=== PATIENT | female | born 1990 | race Caucasian/White ===

== ENCOUNTER 2020-09-24 08:04 | Emergency (ER) | payer OTHER ==
[~2020-09-24] VITALS: Ht 160 cm; Wt 74.0 kg
[2020-09-24] MEDS ORDERED: SODIUM CHLORIDE 0.9% 1,000 ML IV ONE (09:00)
[2020-09-24] MEDS: ONDANSETRON HCL 4MG/2ML INJ IV STA ×2 (09:12→10:08)
[2020-09-24] MEDS: KETOROLAC 30MG/ML VIAL IV ONE ×2 (09:13→10:08)
[2020-09-24 09:16] LABS: CLARITY URINE CLEAR (CLEAR); COLOR URINE YELLOW (YELLOW); KETONES URINE NEGATIVE (NEGATIVE); LEUKOCYTE ESTERASE URINE TRACE (NEGATIVE); NITRITE URINE NEGATIVE (NEGATIVE); OCCULT BLOOD URINE TRACE (NEGATIVE); PH URINE 7.5 (4.5-8.0); PROTEIN URINE NEGATIVE (NEGATIVE); SPECIFIC GRAVITY URINE 1.006 (1.005-1.030); UROBILINOGEN URINE 0.2 E.U./dL (0.2-1.0)
[2020-09-24 09:16] LABS: BASOPHILS % 0.3 % (0.0-2.0); EOSINOPHILS % 3.7 % (0.0-5.0); HEMATOCRIT. 38.6 % (36.0-48.0); HEMOGLOBIN. 13.2 g/dL (12.0-16.0); MEAN CORPUSCULAR HEMOGLOBIN 30.2 pg (28.0-32.0); MEAN CORPUSCULAR VOLUME 88.4 fL (81.0-99.0); MEAN PLATELET VOLUME 7.9 fl (7.4-10.4); MONOCYTES % 5.3 % (2.0-8.0); NEUTROPHILS % 66.7 % (40.0-76.0); PLATELET 317 x1000/uL (130-400); RED BLOOD CELL COUNT 4.36 mill/uL (4.2-5.4)
[2020-09-24 09:21] LABS: CHLORIDE 109 mEq/L (98-107)
[2020-09-24 09:27] LABS: PROTHROMBIN TIME 10.5 sec (9.6-11.0)
[2020-09-24 09:35] LABS: HCG SCREEN NEGATIVE
[2020-09-24] MEDS ORDERED: TRAM50TA MT (11:37)
[2020-09-24] MEDS ORDERED: IBUP-2029 MT (11:37)
[2020-09-24] MEDS ORDERED: NITR-87 MT (11:37)
[2020-09-24 13:01] VITALS: BP 116/66
== END 2020-09-24 13:02 | disposition home or self-care (01) ==
LOC: ER 08:04
DX: N83.292 Other ovarian cyst, left side (principal); D25.9 Leiomyoma of uterus, unspecified; R03.0 Elevated blood-pressure reading, without diagnosis of hypertension
CPT/HCPCS: 36415; 74176; 76830; 76856; 80053; 81003; 81025; 83690; 84703; 85025; 85610; 87086; 96361; 96374; 96375; 99285; J1885; J2405; J7030

== ENCOUNTER 2022-09-01 10:37 | Emergency (ER) | payer MEDICAID, OTHER ==
[~2022-09-01] VITALS: Ht 160 cm; Wt 67.0 kg
[~2022-09-01 10:37] MED LIST: IBUP-2029 MT; NITR-87 MT; TRAM50TA MT
[2022-09-01 11:04] LABS: BASOPHILS % 0.2 % (0.0-2.0); EOSINOPHILS % 1.1 % (0.0-5.0); HEMATOCRIT. 39.2 % (36.0-48.0); HEMOGLOBIN. 13.5 g/dL (12.0-16.0); LYMPHOCYTES % 30.6 % (20.0-50.0); MEAN CORPUSCULAR HEMOGLOBIN 30.6 pg (28.0-32.0); MEAN CORPUSCULAR VOLUME 88.8 fL (81.0-99.0); MEAN PLATELET VOLUME 7.8 fl (7.4-10.4); MONOCYTES % 5.4 % (2.0-8.0); NEUTROPHILS % 62.7 % (40.0-76.0); PLATELET 357 x1000/uL (130-400); RED BLOOD CELL COUNT 4.41 mill/uL (4.2-5.4); RED CELL DISTRIBUTION WIDTH 12.8 % (11.6-14.6)
[2022-09-01 11:08] VITALS: BP 104/70
[2022-09-01 11:12] LABS: CHLORIDE 105 mEq/L (98-107)
[2022-09-01 12:03] LABS: HCG SCREEN NEGATIVE
[2022-09-01 14:11] LABS: CLARITY URINE CLOUDY (CLEAR); COLOR URINE DARK YELLOW (YELLOW); KETONES URINE TRACE (NEGATIVE); LEUKOCYTE ESTERASE URINE NEGATIVE (NEGATIVE); NITRITE URINE NEGATIVE (NEGATIVE); OCCULT BLOOD URINE 3+ (NEGATIVE); PH URINE 5.5 (4.5-8.0); PROTEIN URINE TRACE (NEGATIVE); SPECIFIC GRAVITY URINE 1.026 (1.005-1.030); UROBILINOGEN URINE 0.2 E.U./dL (0.2-1.0)
[2022-09-01] MEDS ORDERED: IBUP-2028 MT (15:37)
== END 2022-09-01 15:52 | disposition home or self-care (01) ==
LOC: ER 10:37
DX: R10.30 Lower abdominal pain, unspecified (principal); N93.8 Other specified abnormal uterine and vaginal bleeding; R10.2 Pelvic and perineal pain; E78.00 Pure hypercholesterolemia, unspecified; Z90.49 Acquired absence of other specified parts of digestive tract
CPT/HCPCS: 36415; 76830; 76856; 80053; 81003; 81025; 84703; 85025; 86850; 86900; 99284